=== PATIENT | male | born 1955 ===

== ENCOUNTER 2023-05-13 16:02 | Emergency (ER) | payer OTHER ==
[~2023-05-13] VITALS: Ht 180.3 cm; Wt 104.3 kg
[2023-05-13 16:09] VITALS: BP 158/96
== END 2023-05-13 18:41 | disposition home or self-care (01) ==
LOC: ER 16:02
DX: S41.151A Open bite of right upper arm, initial encounter (principal); W54.0XXA Bitten by dog, initial encounter
CPT/HCPCS: 99283; A9270